=== PATIENT | female | born 1945 | race Caucasian/White ===

== ENCOUNTER → 2022-02-26 | Day surgery (SDC) | payer MEDICARE ==
[~2022-02-26] MED LIST: ALEN70TA71 PO; ATORVASTATIN CA80 MG PO; CLOP75TA PO; CYAN50009 PO; DORZ10DR26 EACHEYE; FURO20TA3 PO; IPRATRPIUM/ALBUTEROL 0.5/2.5MG 3 ML NEBU. NEB PRN; IV RINGERS SOLUTION,LACTATED 1,000 ML IV SCH; LATA7.5D OU; LEVO50CA3 PO; LIDOCAINE 2% PF 5 ML VIAL. ONE; LISI10TA16 PO; METO25TA4 PO; MIDAZOLAM HCL PF 2 MG/2 ML VIAL. IV ONE; ONDANSETRON PF 4 MG/2 ML VIAL. IV PRN; PROPOFOL 10,000 MCG/ML (20ML) VIAL IV ONE; TIMO5DRO26 EACHEYE; TRULICITY
[2022-02-26 14:49] VITALS: BP 139/60
== END | disposition home or self-care (01) ==
LOC: SURG 13:07
PROVIDERS: ATTEND Internal Medicine Gastroenterology
DX: K59.00 Constipation, unspecified (principal); R19.7 Diarrhea, unspecified; I10 Essential (primary) hypertension; E11.9 Type 2 diabetes mellitus without complications; J44.9 Chronic obstructive pulmonary disease, unspecified; K63.89 Other specified diseases of intestine; Z98.0 Intestinal bypass and anastomosis status; Z85.038 Personal history of other malignant neoplasm of large intestine; Z86.73 Personal history of transient ischemic attack (TIA), and cerebral infarction without residual deficits; Z88.5 Allergy status to narcotic agent; Z88.8 Allergy status to other drugs, medicaments and biological substances; Z79.899 Other long term (current) drug therapy
CPT/HCPCS: 45380; 82947; J2001; J2704; J7120